=== PATIENT | male | born 1965 | race American Indian/Alaskan Native ===

== ENCOUNTER 2016-07-20 12:39 | Inpatient (IN) | payer OTHER ==
[2016-07-20 13:24] LABS: Hematocrit 45.4 % (35.5-45.6); Hemoglobin 15.3 gm/dl (11.8-15.2); Mean Corpuscular HGB Conc 34 % (32-34); Mean Corpuscular Hemoglobin 32 pg (28-32); Mean Corpuscular Volume 95 fl (84-94); Platelet Count 317 K/mm3 (140-440); Red Blood Count 4.76 M/mm3 (3.65-5.03); Red Cell Distribution Width 13.7 % (13.2-15.2); White Blood Count 8.1 K/mm3 (4.5-11.0)
[2016-07-20 13:26] LABS: INR 1.01 (0.87-1.13)
[2016-07-20 13:27] LABS: Partial Thromboplastin Time 30.8 Sec. (24.2-36.6)
--- NOTE | 2016-07-20 13:27 | Cat Scan Report ---
CT scan of head without contrast: History: Neuro deficit. Findings: Ventricles are normal in size and the patient 1 cm focal area of low attenuation in the left temporal lobe. No evidence of hemorrhage. No extra-axial fluid collection. Normal brainstem and cerebellum. Normal sinuses and mastoids are Impression: Focal area of low attenuation left temporal lobe probably chronic ischemia. No evidence of hemorrhage. Dr. Lorenzo was informed of the findings at 1:18 PM on 07/20/16. [id number]
[2016-07-20 13:31] LABS: Anion Gap 14 mmol/L; Blood Urea Nitrogen 16 mg/dL (9-20); Calcium 8.8 mg/dL (8.4-10.2); Carbon Dioxide 26 mmol/L (22-30); Chloride 100.2 mmol/L (98-107); Glucose 96 mg/dL (75-100); Potassium 3.6 mmol/L (3.6-5.0); Sodium 137 mmol/L (137-145)
--- NOTE | 2016-07-20 13:34 | Emergency Department Report ---
ED Neuro Deficit HPI - General Chief Complaint: Neuro Symptoms/Deficit Stated Complaint: HIGH BP Time Seen by Provider: 07/20/16 13:10 Source: patient, EMS Mode of arrival: Stretcher Limitations: No Limitations - History of Present Illness Initial Comments: The patient states that he woke up with a headache principally on the left side of his head frontally. He states it was moderate in intensity. He is perhaps slightly dysarthric but does not identify this as a new problem. He denies any facial numbness or drooping. He denies any difficulty in walking, vertigo or dizziness. He denies any change in his vision or any focal weakness or any sensory change whatsoever. The patient denies a history of prior stroke. Initially he denied medical problems of any nature. However on further questioning he did admit to being noncompliant with previous prescriptions for hypertension. He has not seen a doctor in some time. -: During the night (awoke with a headache) Presenting Symptoms: Absent: Weak/Paralyzed One Side, Sudden, Severe Headache, Blurred/Loss of Vision, Facial Droop/Numbness, Unable to Speak Clearly, Altered Mental Status History of same: No Place: home Severity: moderate Quality: other (denies any neurological change) Improves With: none Worsens With: none On Anticoagulants: No Associated Symptoms: denies other symptoms - Related Data Allergies/Adverse Reactions: Allergies Allergy/AdvReac Type Severity Reaction Status Date / Time No Known Allergies Allergy Unverified 07/20/16 13:14 ED Review of Systems ROS: Stated complaint: HIGH BP Other details as noted in HPI Constitutional: denies: chills, fever Eyes: denies: eye pain, eye discharge, vision change ENT: denies: ear pain, throat pain Respiratory: denies: cough, shortness of breath, wheezing Cardiovascular: denies: chest pain, palpitations Endocrine: no symptoms reported Gastrointestinal: denies: abdominal pain, nausea, diarrhea Genitourinary: denies: urgency, dysuria Musculoskeletal: denies: back pain, joint swelling, arthralgia Skin: denies: rash, lesions Neurological: headache. denies: weakness, numbness, paresthesias, confusion, abnormal gait, vertigo Psychiatric: denies: anxiety, depression Hematological/Lymphatic: denies: easy bleeding, easy bruising ED Past Medical Hx - Past Medical History Previous Medical History?: Yes Hx Hypertension: Yes - Surgical History Past Surgical History?: No - Social History Smoking Status: Never Smoker Substance Use Type: None ED Neuro Physical Exam - General Limitations: No Limitations General appearance: alert, in no apparent distress Suspected Stroke: No (acute stroke is unlikely) - Head Head exam: Present: atraumatic, normocephalic. Absent: normal inspection - Eye Eye exam: Present: normal appearance, PERRL, EOMI. Absent: scleral icterus - ENT ENT exam: Present: normal exam, mucous membranes moist - Neck Neck exam: Present: normal inspection. Absent: tenderness, meningismus - Respiratory Respiratory exam: Present: normal lung sounds bilaterally. Absent: respiratory distress - Cardiovascular Cardiovascular Exam: Present: regular rate, normal rhythm. Absent: systolic murmur, diastolic murmur, rubs, gallop - GI/Abdominal GI/Abdominal exam: Present: soft, normal bowel sounds. Absent: distended, tenderness, guarding, rebound, rigid - Rectal Rectal exam: Present: deferred - Extremities Exam Extremities exam: Present: normal inspection - Back Exam Back exam: Present: normal inspection - Neurological Exam Neurological exam: Present: alert, oriented X3, CN II-XII intact (patient seemed to have some facial asymmetry but no paresis), other (perhaps slightly dysarthric). Absent: motor sensory deficit (no drift) - NIHSS Assessment Interval: Baseline 1a. Level of Consciousness: alert 1b. LOC Questions: answers correctly 1c. LOC Commands: performs tasks correctly 2. Best Gaze: normal 3. Visual: no visual loss 4. Facial Palsy: normal symmetrical movement 5b. Motor Arm Right: no drift 5a. Motor Arm Left: no drift 6a. Motor Leg Left: no drift 6b. Motor Leg Right: no drift 7. Limb Ataxia: absent 8. Sensory: normal 9. Best Language: no aphasia 10. Dysarthria: mild/moderate dysarthria 11. Extinction/Inattention: no abnormality (I believe the dysarthria is the patient's baseline) Total Score: 1 Stroke Severity: Minor Stroke - Psychiatric Psychiatric exam: Present: normal affect, normal mood - Skin Skin exam: Present: warm, dry, intact, normal color. Absent: rash ED Course Vital Signs 07/20/16 07/20/16 07/20/16 13:05 13:19 14:00 Temperature 98.6 F Pulse Rate 83 65 63 Respiratory 16 13 18 Rate Blood Pressure 174/120 162/112 O2 Sat by Pulse 99 99 99 Oximetry 07/20/16 07/20/16 15:00 15:10 Temperature Pulse Rate 61 Respiratory 17 16 Rate Blood Pressure 166/118 O2 Sat by Pulse 100 97 Oximetry - Reevaluation(s) Reevaluation #1: The patient's CT shows an area of low attenuation in the left temporal area. This is obviously non-acute. There is no indication for TPA. Patient would be outside the window of opportunity for treatment with TPA even had an acute stroke during the night. 07/20/16 13:34 Reevaluation #2: Discussed with Dr. Mcelroy. Admitted to the hospitalist service. 07/20/16 15:57 - Lab Data Result diagrams: 07/20/16 13:06 07/20/16 13:06 Lab Results 07/20/16 07/20/16 07/20/16 Range/Units 13:06 13:06 13:06 WBC 8.1 (4.5-11.0) K/mm3 RBC 4.76 (3.65-5.03) M/mm3 Hgb 15.3 H (11.8-15.2) gm/dl Hct 45.4 (35.5-45.6) % MCV 95 H (84-94) fl MCH 32 (28-32) pg MCHC 34 (32-34) % RDW 13.7 (13.2-15.2) % Plt Count 317 (140-440) K/mm3 Eos % (Auto) Plastic Surgery Nurse Add Manual Diff Complete Total Counted 100 Seg Neuts % (Manual) 51.0 (40.0-70.0) % Band Neutrophils % 0 % Lymphocytes % (Manual) 21.0 (13.4-35.0) % Reactive Lymphs % (Man) 0 % Monocytes % (Manual) 9.0 H (0.0-7.3) % Eosinophils % (Manual) 18.0 H (0.0-4.3) % Basophils % (Manual) 1.0 (0.0-1.8) % Metamyelocytes % 0 % Myelocytes % 0 % Promyelocytes % 0 % Blast Cells % 0 % Nucleated RBC % Not Reportable Seg Neutrophils # Man 4.1 (1.8-7.7) K/mm3 Band Neutrophils # 0.0 K/mm3 Lymphocytes # (Manual) 1.7 (1.2-5.4) K/mm3 Abs React Lymphs (Man) 0.0 K/mm3 Monocytes # (Manual) 0.7 (0.0-0.8) K/mm3 Eosinophils # (Manual) 1.5 H (0.0-0.4) K/mm3 Basophils # (Manual) 0.1 (0.0-0.1) K/mm3 Metamyelocytes # 0.0 K/mm3 Myelocytes # 0.0 K/mm3 Promyelocytes # 0.0 K/mm3 Blast Cells # 0.0 K/mm3 WBC Morphology Not Reportable Hypersegmented Neuts Not Reportable Hyposegmented Neuts Not Reportable Hypogranular Neuts Not Reportable Smudge Cells Not Reportable Toxic Granulation Not Reportable Toxic Vacuolation Not Reportable Dohle Bodies Not Reportable Pelger-Huet Anomaly Not Reportable Nohemy Rods Not Reportable Platelet Estimate Consistent w auto Clumped Platelets Not Reportable Plt Clumps, EDTA Not Reportable Large Platelets Not Reportable Giant Platelets Not Reportable Platelet Satelliting Not Reportable Plt Morphology Comment Not Reportable RBC Morphology Not Reportable Dimorphic RBCs Not Reportable Polychromasia Not Reportable Hypochromasia Not Reportable Poikilocytosis Not Reportable Anisocytosis 1+ Microcytosis Not Reportable Macrocytosis Few Spherocytes Not Reportable Pappenheimer Bodies Not Reportable Sickle Cells Not Reportable Target Cells Not Reportable Tear Drop Cells Not Reportable Ovalocytes Not Reportable Helmet Cells Not Reportable Sheldon-Clarissa Bodies Not Reportable Vista Rings Not Reportable Sussex Cells Not Reportable Bite Cells Not Reportable Crenated Cell Not Reportable Elliptocytes Not Reportable Acanthocytes (Spur) Not Reportable Rouleaux Not Reportable Hemoglobin C Crystals Not Reportable Schistocytes Not Reportable Malaria parasites Not Reportable Ghassan Bodies Not Reportable Hem Pathologist Commnt No PT 13.2 (12.2-14.9) Sec. INR 1.01 (0.87-1.13) APTT 30.8 (24.2-36.6) Sec. Thrombin Time (15.1-19.6) Sec. Sodium 137 (137-145) mmol/L Potassium 3.6 (3.6-5.0) mmol/L Chloride 100.2 (98-107) mmol/L Carbon Dioxide 26 (22-30) mmol/L Anion Gap 14 mmol/L BUN 16 (9-20) mg/dL Creatinine 1.0 (0.8-1.5) mg/dL Estimated GFR > 60 ml/min BUN/Creatinine Ratio 16.00 % Glucose 96 (75-100) mg/dL Calcium 8.8 (8.4-10.2) mg/dL Troponin T < 0.010 (0.00-0.029) ng/mL 07/20/16 Range/Units 13:06 WBC (4.5-11.0) K/mm3 RBC (3.65-5.03) M/mm3 Hgb (11.8-15.2) gm/dl Hct (35.5-45.6) % MCV (84-94) fl MCH (28-32) pg MCHC (32-34) % RDW (13.2-15.2) % Plt Count (140-440) K/mm3 Eos % (Auto) Add Manual Diff Total Counted Seg Neuts % (Manual) (40.0-70.0) % Band Neutrophils % % Lymphocytes % (Manual) (13.4-35.0) % Reactive Lymphs % (Man) % Monocytes % (Manual) (0.0-7.3) % Eosinophils % (Manual) (0.0-4.3) % Basophils % (Manual) (0.0-1.8) % Metamyelocytes % % Myelocytes % % Promyelocytes % % Blast Cells % % Nucleated RBC % Seg Neutrophils # Man (1.8-7.7) K/mm3 Band Neutrophils # K/mm3 Lymphocytes # (Manual) (1.2-5.4) K/mm3 Abs React Lymphs (Man) K/mm3 Monocytes # (Manual) (0.0-0.8) K/mm3 Eosinophils # (Manual) (0.0-0.4) K/mm3 Basophils # (Manual) (0.0-0.1) K/mm3 Metamyelocytes # K/mm3 Myelocytes # K/mm3 Promyelocytes # K/mm3 Blast Cells # K/mm3 WBC Morphology Hypersegmented Neuts Hyposegmented Neuts Hypogranular Neuts Smudge Cells Toxic Granulation Toxic Vacuolation Dohle Bodies Pelger-Huet Anomaly Nohemy Rods Platelet Estimate Clumped Platelets Plt Clumps, EDTA Large Platelets Giant Platelets Platelet Satelliting Plt Morphology Comment RBC Morphology Dimorphic RBCs Polychromasia Hypochromasia Poikilocytosis Anisocytosis Microcytosis Macrocytosis Spherocytes Pappenheimer Bodies Sickle Cells Target Cells Tear Drop Cells Ovalocytes Helmet Cells Sheldon-Clarissa Bodies Vista Rings Sussex Cells Bite Cells Crenated Cell Elliptocytes Acanthocytes (Spur) Rouleaux Hemoglobin C Crystals Schistocytes Malaria parasites Ghassan Bodies Hem Pathologist Commnt PT (12.2-14.9) Sec. INR (0.87-1.13) APTT (24.2-36.6) Sec. Thrombin Time 17.3 (15.1-19.6) Sec. Sodium (137-145) mmol/L Potassium (3.6-5.0) mmol/L Chloride (98-107) mmol/L Carbon Dioxide (22-30) mmol/L Anion Gap mmol/L BUN (9-20) mg/dL Creatinine (0.8-1.5) mg/dL Estimated GFR ml/min BUN/Creatinine Ratio % Glucose (75-100) mg/dL Calcium (8.4-10.2) mg/dL Troponin T (0.00-0.029) ng/mL - EKG Data -: EKG Interpreted by Me EKG shows normal: sinus rhythm, axis, intervals, QRS complexes, ST-T waves Rate: normal Interpretation: no acute changes - Radiology Data interpreted by me: Discussed with Dr. Martin of the radiologist old hypolucency left temporal area. - Thrombolytic Inclusion/Exclusion Thrombolytic Exclusion Criteria: Symptom Onset > 3 Hours Critical care attestation.: If time is entered above; I have spent that time in minutes in the direct care of this critically ill patient, excluding procedure time. ED Disposition Clinical Impression: Uncontrolled hypertension Cephalalgia Qualifiers: Headache type: unspecified Headache chronicity pattern: acute headache Intractability: not intractable Qualified Code(s): R51 - Headache CVA (cerebral vascular accident) Qualifiers: CVA mechanism: unspecified Qualified Code(s): I63.9 - Cerebral infarction, unspecified Disposition: OP ADMITTED IP TO THIS HOSP Is pt being admited?: Yes Does the pt Need Aspirin: Yes Condition: Stable Instructions: Hypertension (ED) Time of Disposition: 13:38
[2016-07-20] MEDS ORDERED: BABY ASPIRIN PO ONE (13:42)
[2016-07-20] MEDS ORDERED: NORCO 5/325 PO ONE (13:43)
[2016-07-20 14:46] LABS: Anisocytosis 1+; Blastocytes % (Manual) 0 %; Diff Status Complete; Macrocytosis Few; Platelet Estimate Consistent w Auto
[2016-07-20] MEDS ORDERED: NORMODYNE IV ONE (15:28)
[2016-07-20] MEDS ORDERED: BABY ASPIRIN ONE (15:45)
[2016-07-20] MEDS ORDERED: APRESOLINE ONE (15:49)
[2016-07-20] MEDS ORDERED: APRESOLINE IV ONE (15:50)
--- NOTE | 2016-07-20 18:38 | Event Note ---
Date: 07/20/16 See H/p in reports HTN emergency
[2016-07-20] MEDS ORDERED: MILK OF MAGNESIA PO PRN (20:15)
[2016-07-20] MEDS ORDERED: ZOFRAN IV PRN (20:15)
[2016-07-20] MEDS ORDERED: DULCOLAX PR PRN (20:15)
[2016-07-20] MEDS ORDERED: TYLENOL PO PRN (20:15)
[2016-07-20] MEDS ORDERED: LOVENOX SUB-Q SCH (21:00)
[2016-07-20] MEDS: PERCOCET 5/325 PO PRN (21:39)
[2016-07-20] MEDS: LOVENOX SUB-Q SCH (21:39)
[2016-07-20] MEDS: AMBIEN PO PRN (21:39)
[2016-07-20] MEDS ORDERED: PNEUMOVAX 23 IM ONE (21:58)
[2016-07-20] MEDS ORDERED: FLUARIX QUAD 2016-2017(36 MOS+) IM ONE (21:58)
[2016-07-20] MEDS: COREG PO SCH (22:00)
[2016-07-20] MEDS: COZAAR PO SCH (22:00)
--- NOTE | 2016-07-20 22:02 | Admit Criteria Form ---
Admission Criteria Documentation: STROKE: ISCHEMIC Clinical Indications for Admission to Inpatient Care (Place 'X' for any and all applicable criteria): Admission is indicated for ANY ONE of the following(1)(2)(3)(4): [X ]I. Acute stroke Extended stay beyond goal length of stay may be needed for(1)(2) [ ]a) Major deficit or clinical deterioration [ ]b) Hospital-acquired infection (eg, urinary tract infection, pneumonia) [ ]c) Embolic cause of stroke [ ]d) Venous thromboembolism(9) [ ]e) Seizures [ ]f) Bleeding (eg, cerebral) [ ]g) Increased intracranial pressure [ ]h) Comorbidities [ ]i) Surgical intervention The original [facility] content created by [employer] has been revised. The portions of the content which have been revised are identified through the use of italic text or in bold, and [facility] [employer] has neither reviewed nor approved the modified material. All other unmodified content is copyright [facility]. Please see references footnoted in the original [facility] edition 2016 Admission Criteria Met: Yes
[2016-07-21 05:48] LABS: Hematocrit 45.3 % (35.5-45.6); Hemoglobin 14.9 gm/dl (11.8-15.2); Mean Corpuscular HGB Conc 33 % (32-34); Mean Corpuscular Hemoglobin 32 pg (28-32); Mean Corpuscular Volume 96 fl (84-94); Platelet Count 291 K/mm3 (140-440); Red Blood Count 4.72 M/mm3 (3.65-5.03); Red Cell Distribution Width 13.8 % (13.2-15.2); White Blood Count 6.3 K/mm3 (4.5-11.0)
[2016-07-21 06:11] LABS: Alanine Aminotransferase 8 units/L (7-56); Albumin 3.7 g/dL (3.9-5); Albumin/Globulin Ratio 1.2 %; Alkaline Phosphatase 68 units/L (35-129); Anion Gap 17 mmol/L; Bilirubin,Total 0.3 mg/dL (0.1-1.2); Blood Urea Nitrogen 18 mg/dL (9-20); Calcium 8.5 mg/dL (8.4-10.2); Carbon Dioxide 24 mmol/L (22-30); Chloride 103.7 mmol/L (98-107); Glucose 94 mg/dL (75-100); Potassium 3.5 mmol/L (3.6-5.0); Sodium 141 mmol/L (137-145); Total Protein 6.7 g/dL (6.3-8.2)
[2016-07-21 06:47] LABS: Blastocytes % (Manual) 0 %
[2016-07-21 06:48] LABS: Anisocytosis 1+; Diff Status Complete; Macrocytosis Rare; Platelet Estimate Consistent w Auto
[2016-07-21] MEDS: PERCOCET 5/325 PO PRN ×2 (08:00→20:45)
--- NOTE | 2016-07-21 08:19 | History and Physical Report ---
CHIEF COMPLAINT: Severe headache on the left for 1 day. HISTORY OF PRESENT ILLNESS: A 50-year-old -[place] male, who presents with severe headache localized to the left temporal area. It has been going on for 1 day. Also dysarthric at the time of presentation to the ER. Denies any difficulty walking or any weakness. No history of stroke. He has a history of hypertension, but not taking any medications. No nasal regurgitation of fluids. No ataxia. CURRENT MEDICATIONS: None. PAST MEDICAL HISTORY: Hypertension, noncompliant with medications. PAST SURGICAL HISTORY: None. SOCIAL HISTORY: Does not smoke. No alcohol, no recreational drugs. FAMILY HISTORY: Significant for hypertension. REVIEW OF SYSTEMS: CONSTITUTIONAL: No fever, no chills. No weight loss. No weight gain. HEENT: No sore throat. No postnasal drip. No facial droop. NECK: No neck stiffness. CARDIOVASCULAR AND RESPIRATORY SYSTEM: No chest pain, no palpitations, no cough, no wheezing. GASTROINTESTINAL SYSTEM: No nausea, no vomiting, no diarrhea. GENITOURINARY SYSTEM: No dysuria, no flank pain. MUSCULOSKELETAL SYSTEM: No joint pains. CENTRAL NERVOUS SYSTEM: CVA with left-sided headache, along with dysarthria but no focal weakness. PSYCHIATRIC: No depression. No homicidal or suicidal tendencies. SKIN: No rashes. A 14-point review of systems was done. PHYSICAL EXAMINATION: GENERAL: On examination, middle-aged male, cooperative during examination. VITAL SIGNS: Temperature 98.6, pulse is 83, respirations 16, and blood pressure 174/120, repeat was 162/112. HEENT: Unremarkable. Pupils are equal and reactive. NECK: Supple, no lymphadenopathy, no thyromegaly. LUNGS: Clear to auscultation and percussion. Good air entry. CARDIOVASCULAR: S1, S2 heard. No gallop, no murmur, no rub. Apical impulse in left fifth intercostal space and midclavicular line. ABDOMEN: Soft and benign. No hepatosplenomegaly. No guarding, no rigidity. Hernial orifices are normal. EXTREMITIES: Good pedal pulses. No pedal edema. CENTRAL NERVOUS SYSTEM: No focal deficits. Power is 5/5 in all 4 extremities. No sensory loss. All the cranial nerves are normal. SKIN: Normal. LABORATORY DATA: Reviewed. Hemoglobin is 15.3, otherwise labs are normal. Electrolytes are normal. EKG shows normal sinus rhythm, LVH by voltage criteria, QRS with normal QRS complexes, nonspecific ST-T wave changes. EMERGENCY DEPARTMENT COURSE: The patient was not given TPA because there were no clear signs of cerebrovascular accident. The patient has some dysarthria and headache. ASSESSMENT AND PLAN: 1. Hypertensive emergency. The patient was to be given IV labetalol and hydralazine. In the meantime, the patient is started on losartan 100 mg daily and Coreg 12.5 q. 12 hours. 2. Transient ischemic attack. The patient had dysarthria, which has resolved. We will get an MRI and echocardiogram. 3. Headache, resolved, Fioricet if necessary. 4. Deep venous thrombosis prophylaxis, Lovenox 40 mg subcutaneous daily. 5. Neurology consult also requested. JOB# [id number] MARIAN/CARLOS SUN
--- NOTE | 2016-07-21 08:22 | XRay Report ---
AP CHEST: HISTORY: Hypertension AP view of the chest demonstrates a normal mediastinal and cardiac contour with clear lungs and normal bony and soft tissue structures. IMPRESSION: Unremarkable AP chest.
[2016-07-21] MEDS ORDERED: COREG ONE (10:42)
[2016-07-21] MEDS: COREG PO SCH ×2 (11:45→22:14)
[2016-07-21] MEDS: COZAAR PO SCH (11:45)
[2016-07-21] MEDS ORDERED: FLUARIX QUAD 2016-2017(36 MOS+) IM ONE (12:00)
[2016-07-21] MEDS ORDERED: PNEUMOVAX 23 IM ONE (12:00)
--- NOTE | 2016-07-21 14:14 | Consultation ---
History of Present Illness Chief complaint: weakness History of present illness: This is a 50 YO M who presented with a hypertensive emergency headache a nd weakness. Pt says he is better now that his BP is better. Admits he stopped his BP meds when he loss weight. Past History Past Medical History: hypertension Past Surgical History: No surgical history Social history: lives with family Family history: hypertension Medications and Allergies Allergies Allergy/AdvReac Type Severity Reaction Status Date / Time No Known Allergies Allergy Unverified 07/20/16 13:14 Home Medications Medication Instructions Recorded Confirmed Last Taken Type No Known Home Medications [No 07/20/16 07/20/16 Unknown History Reported Home Medications] Active Meds: Active Medications Acetaminophen (Tylenol) 650 mg PO Q4H PRN PRN Reason: Pain MILD(1-3)/Fever >100.5/SESAY Bisacodyl (Dulcolax) 10 mg NC QDAY PRN PRN Reason: Constipation unrelieved by MOM Carvedilol (Coreg) 12.5 mg PO BID [facility] Last Admin: 07/21/16 11:45 Dose: 12.5 mg Enoxaparin Sodium (Lovenox) 40 mg SUB-Q QDAY@2200 [facility] Last Admin: 07/20/16 21:39 Dose: 40 mg Losartan Potassium (Cozaar) 100 mg PO QDAY [facility] Last Admin: 07/21/16 11:45 Dose: 100 mg Magnesium Hydroxide (Milk Of Magnesia) 30 ml PO Q4H PRN PRN Reason: Constipation Ondansetron HCl (Zofran) 4 mg IV Q8H PRN PRN Reason: N/V unrelieved by Reglan Oxycodone/Acetaminophen (Percocet 5/325) 1 tab PO Q6H PRN PRN Reason: Pain, Moderate (4-6) Last Admin: 07/21/16 08:00 Dose: 1 tab Zolpidem Tartrate (Ambien) 5 mg PO QHS PRN PRN Reason: Insomnia Last Admin: 07/20/16 21:39 Dose: 5 mg Review of Systems All systems: negative Neurological: weakness, headaches Physical Examination - Vital Signs Vital Signs: Vital Signs Temp Pulse Resp BP Pulse Ox 98.6 F 83 16 174/120 99 07/20/16 13:05 07/20/16 13:05 07/20/16 13:05 07/20/16 13:05 07/20/16 13:05 - Constitutional General appearance: comfortable - EENT EENT: Present: PERRL - Respiratory Respiratory: Present: lungs clear - Cardiovascular Cardiovascular: Present: normal S1, normal S2 - Gastrointestinal Gastrointestinal: Present: normoactive bowel sounds - Neurologic Cranial nerve examination: PERRL, EOMI, V1/V2/V3 grossly intact, face symmetric , tongue midline Speech examination: intact Sensorimotor examination: intact Motor examination - right side: 5/5: biceps, triceps, wrist flexion, wrist extension, boat washer, hip flexors, knee extensors, dorsiflexion, toe extension (EHL) , plantarflexion Motor examination - left side: 5/5: biceps, triceps, wrist flexion, wrist extension, boat washer, hip flexors, knee extensors, dorsiflexion, toe extension (EHL) , plantarflexion Reflexes: 0: ankle, bicep, knee, tricep Results - Laboratory Findings CBC and BMP: 07/21/16 05:32 07/21/16 05:32 Abnormal Lab Findings: Abnormal Labs 07/21/16 07/21/16 05:32 05:32 MCV 96 H Seg Neuts % (Manual) 36.0 L Monocytes % (Manual) 10.0 H Eosinophils % (Manual) 25.0 H Eosinophils # (Manual) 1.6 H Potassium 3.5 L Albumin 3.7 L - Diagnostic Findings Additional findings: Nothing acute Assessment and Plan TIA in the setting of hypertensive emergency: Recommend: aspirin and statin control BP as you are doing PT/OT/ST echo and carotids Continue care for his medical issues as you are doing Thank you for the consult. Call with questions.
--- NOTE | 2016-07-21 15:37 | Progress Note ---
Assessment and Plan Assessment and plan: 1. Hypertensive urgency - due to noncompliance (lost weight and stopped taking his antihypertensives); received hydralazine and labetalol IV initially, now on by mouth Coreg and losartan; SBP in 140s; continue to monitor and adjust regimen as needed 2. TIA - likely secondary to hypertensive urgency, but CT head revealed a possible old stroke; evaluated by neurologist and additional workup in progress (brain MRI, echocardiogram, carotid Doppler); start antiplatelet and statin therapy today; check lipid profile and if necessary adjust statin dose 3. Headache - likely secondary to hypertensive urgency; resolved 4. Umbilical hernia - was to follow-up in outpatient with his surgeon 5. DVT prophylaxis - Lovenox History Interval history: feeling much better today, headache resolved c/o abd discomfort due to his hernia Hospitalist Physical - Constitutional Vitals: Temp Pulse Resp BP Pulse Ox 98.6 F 89 17 126/81 99 07/20/16 13:05 07/21/16 11:45 07/21/16 11:42 07/21/16 14:00 07/21/16 14:00 General appearance: Present: no acute distress, well-nourished - Neck Neck: Present: supple, normal ROM. Absent: masses or JVD - Respiratory Respiratory effort: normal Respiratory: bilateral: CTA, negative: rales, rhonchi, wheezing - Cardiovascular Rhythm: regular Heart Sounds: Present: S1 & S2. Absent: systolic murmur - Extremities Extremities: no ischemia - Abdominal General gastrointestinal: soft, non-tender, non-distended, normal bowel sounds - Psychiatric Psychiatric: cooperative - Neurologic Neurologic: CNII-XII intact, no focal deficits Results - Labs CBC & Chem 7: 07/21/16 05:32 07/21/16 05:32 Labs: Laboratory Last Values WBC 6.3 K/mm3 (4.5-11.0) 07/21/16 05:32 RBC 4.72 M/mm3 (3.65-5.03) 07/21/16 05:32 Hgb 14.9 gm/dl (11.8-15.2) 07/21/16 05:32 Hct 45.3 % (35.5-45.6) 07/21/16 05:32 MCV 96 fl (84-94) H 07/21/16 05:32 MCH 32 pg (28-32) 07/21/16 05:32 MCHC 33 % (32-34) 07/21/16 05:32 RDW 13.8 % (13.2-15.2) 07/21/16 05:32 Plt Count 291 K/mm3 (140-440) 07/21/16 05:32 Eos % (Auto) 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 07/21/16 05:32 Add Manual Diff Complete 07/21/16 05:32 Total Counted 100 07/21/16 05:32 Seg Neuts % (Manual) 36.0 % (40.0-70.0) L 07/21/16 05:32 Band Neutrophils % 0 % 07/21/16 05:32 Lymphocytes % (Manual) 28.0 % (13.4-35.0) 07/21/16 05:32 Reactive Lymphs % (Man) 0 % 07/21/16 05:32 Monocytes % (Manual) 10.0 % (0.0-7.3) H 07/21/16 05:32 Eosinophils % (Manual) 25.0 % (0.0-4.3) H 07/21/16 05:32 Basophils % (Manual) 1.0 % (0.0-1.8) 07/21/16 05:32 Metamyelocytes % 0 % 07/21/16 05:32 Myelocytes % 0 % 07/21/16 05:32 Promyelocytes % 0 % 07/21/16 05:32 Blast Cells % 0 % 07/21/16 05:32 Nucleated RBC % Not Reportable 07/21/16 05:32 Seg Neutrophils # Man 2.3 K/mm3 (1.8-7.7) 07/21/16 05:32 Band Neutrophils # 0.0 K/mm3 07/21/16 05:32 Lymphocytes # (Manual) 1.8 K/mm3 (1.2-5.4) 07/21/16 05:32 Abs React Lymphs (Man) 0.0 K/mm3 07/21/16 05:32 Monocytes # (Manual) 0.6 K/mm3 (0.0-0.8) 07/21/16 05:32 Eosinophils # (Manual) 1.6 K/mm3 (0.0-0.4) H 07/21/16 05:32 Basophils # (Manual) 0.1 K/mm3 (0.0-0.1) 07/21/16 05:32 Metamyelocytes # 0.0 K/mm3 07/21/16 05:32 Myelocytes # 0.0 K/mm3 07/21/16 05:32 Promyelocytes # 0.0 K/mm3 07/21/16 05:32 Blast Cells # 0.0 K/mm3 07/21/16 05:32 WBC Morphology Not Reportable 07/21/16 05:32 Hypersegmented Neuts Not Reportable 07/21/16 05:32 Hyposegmented Neuts Not Reportable 07/21/16 05:32 Hypogranular Neuts Not Reportable 07/21/16 05:32 Smudge Cells Not Reportable 07/21/16 05:32 Toxic Granulation Not Reportable 07/21/16 05:32 Toxic Vacuolation Not Reportable 07/21/16 05:32 Dohle Bodies Not Reportable 07/21/16 05:32 Pelger-Huet Anomaly Not Reportable 07/21/16 05:32 Nohemy Rods Not Reportable 07/21/16 05:32 Platelet Estimate Consistent w auto 07/21/16 05:32 Clumped Platelets Not Reportable 07/21/16 05:32 Plt Clumps, EDTA Not Reportable 07/21/16 05:32 Large Platelets Not Reportable 07/21/16 05:32 Giant Platelets Not Reportable 07/21/16 05:32 Platelet Satelliting Not Reportable 07/21/16 05:32 Plt Morphology Comment Not Reportable 07/21/16 05:32 RBC Morphology Not Reportable 07/21/16 05:32 Dimorphic RBCs Not Reportable 07/21/16 05:32 Polychromasia Not Reportable 07/21/16 05:32 Hypochromasia Not Reportable 07/21/16 05:32 Poikilocytosis Not Reportable 07/21/16 05:32 Anisocytosis 1+ 07/21/16 05:32 Microcytosis Not Reportable 07/21/16 05:32 Macrocytosis Rare 07/21/16 05:32 Spherocytes Not Reportable 07/21/16 05:32 Pappenheimer Bodies Not Reportable 07/21/16 05:32 Sickle Cells Not Reportable 07/21/16 05:32 Target Cells Not Reportable 07/21/16 05:32 Tear Drop Cells Not Reportable 07/21/16 05:32 Ovalocytes Not Reportable 07/21/16 05:32 Helmet Cells Not Reportable 07/21/16 05:32 [place] Bodies Not Reportable 07/21/16 05:32 [place] Rings Not Reportable 07/21/16 05:32 [place] Cells Not Reportable 07/21/16 05:32 Bite Cells Not Reportable 07/21/16 05:32 Crenated Cell Not Reportable 07/21/16 05:32 Elliptocytes Not Reportable 07/21/16 05:32 Acanthocytes (Spur) Not Reportable 07/21/16 05:32 Rouleaux Not Reportable 07/21/16 05:32 Hemoglobin C Crystals Not Reportable 07/21/16 05:32 Schistocytes Not Reportable 07/21/16 05:32 Malaria parasites Not Reportable 07/21/16 05:32 Ghassan Bodies Not Reportable 07/21/16 05:32 Hem Pathologist Commnt No 07/21/16 05:32 PT 13.2 Sec. (12.2-14.9) 07/20/16 13:06 INR 1.01 (0.87-1.13) 07/20/16 13:06 APTT 30.8 Sec. (24.2-36.6) 07/20/16 13:06 Thrombin Time 17.3 Sec. (15.1-19.6) 07/20/16 13:06 Sodium 141 mmol/L (137-145) 07/21/16 05:32 Potassium 3.5 mmol/L (3.6-5.0) L 07/21/16 05:32 Chloride 103.7 mmol/L (98-107) 07/21/16 05:32 Carbon Dioxide 24 mmol/L (22-30) 07/21/16 05:32 Anion Gap 17 mmol/L 07/21/16 05:32 BUN 18 mg/dL (9-20) 07/21/16 05:32 Creatinine 1.2 mg/dL (0.8-1.5) 07/21/16 05:32 Estimated GFR > 60 ml/min 07/21/16 05:32 BUN/Creatinine Ratio 15.00 % 07/21/16 05:32 Glucose 94 mg/dL (75-100) 07/21/16 05:32 POC Glucose 83 (70-105) 07/20/16 13:03 Calcium 8.5 mg/dL (8.4-10.2) 07/21/16 05:32 Total Bilirubin 0.3 mg/dL (0.1-1.2) 07/21/16 05:32 AST 11 units/L (5-40) 07/21/16 05:32 ALT 8 units/L (7-56) 07/21/16 05:32 Alkaline Phosphatase 68 units/L (35-129) 07/21/16 05:32 Troponin T < 0.010 ng/mL (0.00-0.029) 07/20/16 13:06 Total Protein 6.7 g/dL (6.3-8.2) 07/21/16 05:32 Albumin 3.7 g/dL (3.9-5) L 07/21/16 05:32 Albumin/Globulin Ratio 1.2 % 07/21/16 05:32 - Imaging and Cardiology Chest x-ray: image reviewed (no acute process) CT Scan - head: report reviewed (focal area of low attenuation left temporal lobe prabably chronic ischemia) Imaging and Cardiology: ECHO pending
--- NOTE | 2016-07-21 17:31 | Echocardiography Report ---
Transthoracic Echocardiogram Indication: CHF BP: 124/81 HR: 59 Conclusions *Mild concentric left ventricular hypertrophy is observed. *Global left ventricular systolic function is at the lower limits of normal. *The estimated ejection fraction is 50-55%. *The aortic valve is trileaflet. *There is trace of mitral regurgitation. *There is no pericardial effusion. Findings Procedure Info: The study quality is good. Left Ventricle: The left ventricular chamber size is normal. Mild concentric left ventricular hypertrophy is observed. Global left ventricular systolic function is at the lower limits of normal. The estimated ejection fraction is 50-55%. Left Atrium: The left atrium is normal in size with no visual thrombus identified. The left atrial chamber size is normal. Right Ventricle: The right ventricle wall thickness is mildly increased. The right ventricular cavity size is normal. The right ventricular global systolic function is normal. Right Atrium: The right atrium is mildly dilated. Aortic Valve: The aortic valve is trileaflet. The aortic valve leaflets are mildly thickened. Systolic excursion of the aortic valve is normal. There is no evidence of aortic regurgitation. There is no evidence of aortic stenosis. Mitral Valve: The mitral valve leaflets appear normal. There is trace of mitral regurgitation. There is no evidence of mitral stenosis. Tricuspid Valve: There is trace tricuspid regurgitation. The right ventricular systolic pressure is calculated at ( ) mmHg. No pulmonary hypertension is noted. There is no tricuspid stenosis. Pulmonic Valve: The pulmonic valve is not well visualized. There is no evidence of pulmonic regurgitation. There is no pulmonic stenosis. Pericardium: There is no pericardial effusion. No pleural effusion is present. Measurements Chambers MM Name Value Normal Range IVSd (MM) 1.43 cm (0.6 - 1.1) LVPWd (MM) 1.43 cm (0.6 - 1.1) IVS:LVPW ratio 1 ratio - LVIDd (MM) 4.41 cm (3.7 - 5.6) LVIDs (MM) 3.19 cm (2 - 2.8) LV FS (Teichholz) (MM) 27.7 % - LV FS (cube) (MM) 27.7 % - EF Teichholz (MM) 54 % - Ao root diameter (MM) 2.6 cm (2 - 3.7) LA dimension (AP) MM 4.4 cm (1.9 - 4) LA:Ao ratio (MM) 1.69 ratio - AV cusp separation (MM) 2.2 cm (1.5 - 2.6) Chambers 2D Name Value Normal Range IVSd (2D) 1.29 cm (0.6 - 1.1) LVPWd 1.4 cm - LVPWd (2D) 1.35 cm (0.6 - 1.1) IVS:LVPW ratio (2D) 0.96 ratio - LVIDd 4.1 cm - LVIDs 2.94 cm - LVIDd (2D) 4.07 cm (3.7 - 5.6) LVIDs (2D) 2.94 cm (2 - 3.8) LV FS (Teichholz) (2D) 27.8 % - LV FS (cube) (2D) 27.8 % - LV EF (2D) 54 % - EF Teichholz (2D) 54.3 % - LA dimension 3.5 cm - Ao root diameter (2D) 2.8 cm (2 - 3.7) LA dimension (AP) 2D 3.5 cm (1.9 - 4) LA:Ao ratio (2D) 1.25 ratio - Volumes/Mass Name Value Normal Range LA ESV SP 4CH (MOD) 54 ml - LV EDV SP 4CH (MOD) 86 ml - LV ESV SP 4CH (MOD) 42 ml - EF SP 4CH (MOD) 51 % - Diastolic/Systolic Function Name Value Normal Range MV E-wave Vmax 0.73 m/sec - MV deceleration time 176 msec - MV A-wave Vmax 0.64 m/sec - MV E:A ratio 1.1 ratio - LV septal e' Vmax 0.07 m/sec - LV lateral e' Vmax 0.11 m/sec - LV E:e' septal ratio 10.5 ratio - LV E:e' lateral ratio 6.5 ratio - Aortic Valve Name Value Normal Range AV Vmax 1.47 m/sec - AV VTI 27.6 cm - AV peak gradient 9 mmHg - AV mean gradient 5 mmHg - LVOT diameter 2 cm - LVOT Vmax 1.02 m/sec - LVOT peak gradient 4 mmHg - MINDY (continuity Vmax) 2.18 cm2 - Pulmonic Valve/Qp:Qs Name Value Normal Range PV Vmax 0.83 m/sec - PV peak gradient 3 mmHg - PV acceleration time 144 msec -
[2016-07-21] MEDS: LOVENOX SUB-Q SCH (22:15)
[2016-07-22] MEDS: PERCOCET 5/325 PO PRN ×2 (08:12→14:09)
[2016-07-22] MEDS: COREG PO SCH ×2 (10:02→21:57)
[2016-07-22] MEDS: COZAAR PO SCH (10:02)
[2016-07-22] MEDS: BABY ASPIRIN PO SCH (10:02)
[2016-07-22] MEDS ORDERED: ATIVAN IV ONE (12:45)
--- NOTE | 2016-07-22 17:22 | Progress Note ---
Assessment and Plan Assessment and plan: Hypertensive urgency - due to noncompliance (lost weight and stopped taking his antihypertensives); - received hydralazine and labetalol IV initially, - now on by mouth Coreg and losartan; SBP in 140s; - continue to monitor and adjust regimen as needed TIA - likely secondary to hypertensive urgency, - but CT head revealed a possible old stroke; - evaluated by neurologist and additional workup in progress (brain MRI, carotid Doppler); - 2d echo showed normal EF - cont on antiplatelet and statin therapy Headache - likely secondary to hypertensive urgency; resolved Umbilical hernia - has to follow-up in outpatient with his surgeon DVT prophylaxis - Lovenox History Interval history: Patient seen and examined. Medical records and medication list reviewed. No acute event overnight noted by the RN. Patient denies any chest pain or difficulty breathing. Patient is tolerating diet. MRI pending, no new complaints Discussed plan of care at bedside with patient. Hospitalist Physical - Physical exam Narrative exam: GENERAL: well-developed and well-nourished AAM lying on bed appeared to be in no discomfort. HEENT: Normocephalic. Atraumatic. No conjunctival congestion or icterus. Patient has moist mucous membranes. NECK: Supple. Trachea midline. CHEST/LUNGS: Clear to auscultated bilaterally, breathing nonlabored. No wheezes crackles or rhonchi. HEART/CARDIOVASCULAR: Regular in rate and rhythm. S1 and S2 positive. ABDOMEN: Abdomen is soft, nontender. Patient has normal bowel sounds. has reducible umbilical hernia SKIN: There is no rash. Warm and dry. NEURO: No focal motor deficit. Follows command. MUSCULOSKELETAL: No joint effusion or tenderness. EXTRIMITY: No edema, no cyanosis or clubbing. PSYCH: Cooperative. - Constitutional Vitals: Temp Pulse Resp BP Pulse Ox 98.3 F 73 20 149/57 92 07/22/16 17:05 07/22/16 17:05 07/22/16 17:05 07/22/16 17:05 07/22/16 17:05 General appearance: Present: no acute distress, well-nourished Results - Labs CBC & Chem 7: 07/21/16 05:32 07/21/16 05:32 Labs: Laboratory Last Values WBC 6.3 K/mm3 (4.5-11.0) 07/21/16 05:32 RBC 4.72 M/mm3 (3.65-5.03) 07/21/16 05:32 Hgb 14.9 gm/dl (11.8-15.2) 07/21/16 05:32 Hct 45.3 % (35.5-45.6) 07/21/16 05:32 MCV 96 fl (84-94) H 07/21/16 05:32 MCH 32 pg (28-32) 07/21/16 05:32 MCHC 33 % (32-34) 07/21/16 05:32 RDW 13.8 % (13.2-15.2) 07/21/16 05:32 Plt Count 291 K/mm3 (140-440) 07/21/16 05:32 Eos % (Auto) Superintendent Plant 07/21/16 05:32 Add Manual Diff Complete 07/21/16 05:32 Total Counted 100 07/21/16 05:32 Seg Neuts % (Manual) 36.0 % (40.0-70.0) L 07/21/16 05:32 Band Neutrophils % 0 % 07/21/16 05:32 Lymphocytes % (Manual) 28.0 % (13.4-35.0) 07/21/16 05:32 Reactive Lymphs % (Man) 0 % 07/21/16 05:32 Monocytes % (Manual) 10.0 % (0.0-7.3) H 07/21/16 05:32 Eosinophils % (Manual) 25.0 % (0.0-4.3) H 07/21/16 05:32 Basophils % (Manual) 1.0 % (0.0-1.8) 07/21/16 05:32 Metamyelocytes % 0 % 07/21/16 05:32 Myelocytes % 0 % 07/21/16 05:32 Promyelocytes % 0 % 07/21/16 05:32 Blast Cells % 0 % 07/21/16 05:32 Nucleated RBC % Not Reportable 07/21/16 05:32 Seg Neutrophils # Man 2.3 K/mm3 (1.8-7.7) 07/21/16 05:32 Band Neutrophils # 0.0 K/mm3 07/21/16 05:32 Lymphocytes # (Manual) 1.8 K/mm3 (1.2-5.4) 07/21/16 05:32 Abs React Lymphs (Man) 0.0 K/mm3 07/21/16 05:32 Monocytes # (Manual) 0.6 K/mm3 (0.0-0.8) 07/21/16 05:32 Eosinophils # (Manual) 1.6 K/mm3 (0.0-0.4) H 07/21/16 05:32 Basophils # (Manual) 0.1 K/mm3 (0.0-0.1) 07/21/16 05:32 Metamyelocytes # 0.0 K/mm3 07/21/16 05:32 Myelocytes # 0.0 K/mm3 07/21/16 05:32 Promyelocytes # 0.0 K/mm3 07/21/16 05:32 Blast Cells # 0.0 K/mm3 07/21/16 05:32 WBC Morphology Not Reportable 07/21/16 05:32 Hypersegmented Neuts Not Reportable 07/21/16 05:32 Hyposegmented Neuts Not Reportable 07/21/16 05:32 Hypogranular Neuts Not Reportable 07/21/16 05:32 Smudge Cells Not Reportable 07/21/16 05:32 Toxic Granulation Not Reportable 07/21/16 05:32 Toxic Vacuolation Not Reportable 07/21/16 05:32 Dohle Bodies Not Reportable 07/21/16 05:32 Pelger-Huet Anomaly Not Reportable 07/21/16 05:32 Nohemy Rods Not Reportable 07/21/16 05:32 Platelet Estimate Consistent w auto 07/21/16 05:32 Clumped Platelets Not Reportable 07/21/16 05:32 Plt Clumps, EDTA Not Reportable 07/21/16 05:32 Large Platelets Not Reportable 07/21/16 05:32 Giant Platelets Not Reportable 07/21/16 05:32 Platelet Satelliting Not Reportable 07/21/16 05:32 Plt Morphology Comment Not Reportable 07/21/16 05:32 RBC Morphology Not Reportable 07/21/16 05:32 Dimorphic RBCs Not Reportable 07/21/16 05:32 Polychromasia Not Reportable 07/21/16 05:32 Hypochromasia Not Reportable 07/21/16 05:32 Poikilocytosis Not Reportable 07/21/16 05:32 Anisocytosis 1+ 07/21/16 05:32 Microcytosis Not Reportable 07/21/16 05:32 Macrocytosis Rare 07/21/16 05:32 Spherocytes Not Reportable 07/21/16 05:32 Pappenheimer Bodies Not Reportable 07/21/16 05:32 Sickle Cells Not Reportable 07/21/16 05:32 Target Cells Not Reportable 07/21/16 05:32 Tear Drop Cells Not Reportable 07/21/16 05:32 Ovalocytes Not Reportable 07/21/16 05:32 Helmet Cells Not Reportable 07/21/16 05:32 [place] Bodies Not Reportable 07/21/16 05:32 [place] Rings Not Reportable 07/21/16 05:32 [place] Cells Not Reportable 07/21/16 05:32 Bite Cells Not Reportable 07/21/16 05:32 Crenated Cell Not Reportable 07/21/16 05:32 Elliptocytes Not Reportable 07/21/16 05:32 Acanthocytes (Spur) Not Reportable 07/21/16 05:32 Rouleaux Not Reportable 07/21/16 05:32 Hemoglobin C Crystals Not Reportable 07/21/16 05:32 Schistocytes Not Reportable 07/21/16 05:32 Malaria parasites Not Reportable 07/21/16 05:32 Ghassan Bodies Not Reportable 07/21/16 05:32 Hem Pathologist Commnt No 07/21/16 05:32 PT 13.2 Sec. (12.2-14.9) 07/20/16 13:06 INR 1.01 (0.87-1.13) 07/20/16 13:06 APTT 30.8 Sec. (24.2-36.6) 07/20/16 13:06 Thrombin Time 17.3 Sec. (15.1-19.6) 07/20/16 13:06 Sodium 141 mmol/L (137-145) 07/21/16 05:32 Potassium 3.5 mmol/L (3.6-5.0) L 07/21/16 05:32 Chloride 103.7 mmol/L (98-107) 07/21/16 05:32 Carbon Dioxide 24 mmol/L (22-30) 07/21/16 05:32 Anion Gap 17 mmol/L 07/21/16 05:32 BUN 18 mg/dL (9-20) 07/21/16 05:32 Creatinine 1.2 mg/dL (0.8-1.5) 07/21/16 05:32 Estimated GFR > 60 ml/min 07/21/16 05:32 BUN/Creatinine Ratio 15.00 % 07/21/16 05:32 Glucose 94 mg/dL (75-100) 07/21/16 05:32 POC Glucose 83 (70-105) 07/20/16 13:03 Calcium 8.5 mg/dL (8.4-10.2) 07/21/16 05:32 Total Bilirubin 0.3 mg/dL (0.1-1.2) 07/21/16 05:32 AST 11 units/L (5-40) 07/21/16 05:32 ALT 8 units/L (7-56) 07/21/16 05:32 Alkaline Phosphatase 68 units/L (35-129) 07/21/16 05:32 Troponin T < 0.010 ng/mL (0.00-0.029) 07/20/16 13:06 Total Protein 6.7 g/dL (6.3-8.2) 07/21/16 05:32 Albumin 3.7 g/dL (3.9-5) L 07/21/16 05:32 Albumin/Globulin Ratio 1.2 % 07/21/16 05:32 Triglycerides 43 mg/dL (2-149) 07/22/16 05:26 Cholesterol 61 mg/dL (50-199) 07/22/16 05:26 LDL Cholesterol Direct 17 mg/dL (50-130) L 07/22/16 05:26 HDL Cholesterol 36 mg/dL (40-59) L 07/22/16 05:26 Cholesterol/HDL Ratio 1.69 % 07/22/16 05:26
[2016-07-22] MEDS: LOVENOX SUB-Q SCH (21:56)
[2016-07-22] MEDS: AMBIEN PO PRN (21:56)
[2016-07-23] MEDS ORDERED: APRESOLINE IV PRN (05:07)
[2016-07-23] MEDS: PERCOCET 5/325 PO PRN ×2 (05:42→12:26)
[2016-07-23] MEDS: COZAAR PO SCH (10:21)
[2016-07-23] MEDS: COREG PO SCH (10:21)
[2016-07-23] MEDS: BABY ASPIRIN PO SCH (10:21)
[2016-07-23] MEDS ORDERED: NACL ONE (13:51)
[2016-07-23 15:25] VITALS: BP 160/96
--- NOTE | 2016-07-23 15:45 | Cat Scan Report ---
CTA of the neck and CTA of head: History: CVA. Findings: The region of the innominate artery and the left common carotid and left subclavian artery is from the aorta. The right common carotid and the right subclavian origin is from the innominate. Along the origin and course of the right and left common carotid and the internal carotids and vertebrals there is no evidence of stenoses, plaque formation or occlusion noted. At the bulb the right than the left internal carotid the common carotid appears normal. The vessels of [place] appears unremarkable. No evidence of stenosis occlusion or aneurysm. Bilaterally vertebral are codominant with normal basilar artery. Impression: No evidence of plaque formation, stenoses, occlusion or aneurysm at vessels of the neck and intracranial vessels.
--- NOTE | 2016-07-23 15:45 | Cat Scan Report ---
CTA of the neck and CTA of head: History: CVA. Findings: The region of the innominate artery and the left common carotid and left subclavian artery is from the aorta. The right common carotid and the right subclavian origin is from the innominate. Along the origin and course of the right and left common carotid and the internal carotids and vertebrals there is no evidence of stenoses, plaque formation or occlusion noted. At the bulb the right than the left internal carotid the common carotid appears normal. The vessels of [place] appears unremarkable. No evidence of stenosis occlusion or aneurysm. Bilaterally vertebral are codominant with normal basilar artery. Impression: No evidence of plaque formation, stenoses, occlusion or aneurysm at vessels of the neck and intracranial vessels.
--- NOTE | 2016-07-23 16:38 | Discharge Summary ---
Providers - Providers Date of Admission: 07/20/16 20:15 Date of discharge: 07/23/16 Attending physician: SANDEE MONTELONGO 07/21/16 06:40 Consult to Physician [CONS] Routine Consulting Provider: SARAH PETERSON Reason For Exam: TIA Place consult to:: Dunia Rand Notified:: yes Phone number called:: [phone] Was contact made?: Yes If yes, spoke with:: message left as instructed Time called:: 07:49 Primary care physician: DIGITAL PRESS OPERATOR Hospitalization Condition: Stable Hospital course: HPI: This is a 50 YO Male with a history of previous CVA and hypertension presented with a hypertensive emergency BP 174/120, left temporal headache and left sided weakness. Patient stated that he stopped his BP meds when he loss weight. He was admitted to the hospital for stroke workup. Discharge Diagnosis and management by problem: Hypertensive urgency - due to noncompliance (lost weight and stopped taking his antihypertensives); - received hydralazine and labetalol IV initially, - now on by mouth Coreg and losartan; SBP in 140s; - Patient will continue to take current meds TIA - likely secondary to hypertensive urgency, - but CT head revealed a possible old stroke at left temporal lobe; - evaluated by neurologist and recommended additional workup (brain MRI, carotid Doppler); - 2d echo showed normal EF, MRI could not obtain because MRI machine was down - CTA head and neck was obtained per neurology and that was unremarkable - cont on antiplatelet and statin therapy Headache - likely secondary to hypertensive urgency; resolved Umbilical hernia - has to follow-up in outpatient with his surgeon Disposition: DISCHARGED TO HOME OR SELFCARE Time spent for discharge: 35 minutes Core Measure Documentation - Palliative Care Palliative Care/ Comfort Measures: Not Applicable - Core Measures Any of the following diagnoses?: stroke - Stroke Discharge Requirements Statin for LDL = or >70 mg/dl on DC: Yes Anticoag for atrial fib/atrial flutter: Not Applicable Antithrombotic for ischemic stroke: Yes Exam - Physical Exam Narrative exam: GENERAL: well-developed and well-nourished AAM lying on bed appeared to be in no discomfort. HEENT: Normocephalic. Atraumatic. No conjunctival congestion or icterus. Patient has moist mucous membranes. NECK: Supple. Trachea midline. CHEST/LUNGS: Clear to auscultated bilaterally, breathing nonlabored. No wheezes crackles or rhonchi. HEART/CARDIOVASCULAR: Regular in rate and rhythm. S1 and S2 positive. ABDOMEN: Abdomen is soft, nontender. Patient has normal bowel sounds. has reducible umbilical hernia SKIN: There is no rash. Warm and dry. NEURO: No focal motor deficit. Follows command. MUSCULOSKELETAL: No joint effusion or tenderness. EXTRIMITY: No edema, no cyanosis or clubbing. PSYCH: Cooperative. - Constitutional Vitals: Temp Pulse Resp BP Pulse Ox 98.5 F 55 L 20 150/86 100 07/23/16 15:24 07/23/16 15:24 07/23/16 15:24 07/23/16 15:24 07/23/16 15:24 Plan Activity: advance as tolerated Weight Bearing Status: Weight Bear as Tolerated Diet: low cholesterol, low salt Follow up with: [facility] [Outside] - 07/25/16 10:00 am PRIMARY CAREMD [Primary Care Provider] - 3-5 Days Prescriptions: AtorvaSTATin [Lipitor] 10 mg PO QHS #30 tablet Aspirin [Aspirin BABY CHEW TAB] 81 mg PO QDAY #30 tab.chew Carvedilol [Coreg] 12.5 mg PO BID #60 tablet Losartan [Cozaar] 100 mg PO QDAY #30 tablet
== END 2016-07-23 17:50 | disposition home or self-care (01) | DRG 305 ==
LOC: ED 12:39 → 4A 20:15
PROVIDERS: ADMIT Internal Medicine; ATTEND Internal Medicine
DX: I16.0 Hypertensive urgency (principal); I16.1 Hypertensive emergency; G45.9 Transient cerebral ischemic attack, unspecified; K42.9 Umbilical hernia without obstruction or gangrene; I10 Essential (primary) hypertension; R63.4 Abnormal weight loss; Z91.14 Patient's other noncompliance with medication regimen; Z82.49 Family history of ischemic heart disease and other diseases of the circulatory system; Z68.26 Body mass index [BMI] 26.0-26.9, adult; Z86.73 Personal history of transient ischemic attack (TIA), and cerebral infarction without residual deficits
CPT/HCPCS: 36415; 70450; 70496; 70498; 71010; 80048; 80053; 80061; 82962; 84484; 85007; 85025; 85610; 85670; 85730; 90686; 90732; 93005; 93010; 93306; 96372; 96374; A9270-GY; J0360; J1650; Q9967

== ENCOUNTER 2020-10-10 06:52 | Emergency (ER) | payer SELFPAY ==
--- NOTE | 2020-10-10 07:30 | Event Note ---
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 Further treatment and workup at subsequent clinical providers discretion. Patient/guardian urged not to elope from the ED as their condition may be serious if not clinically assessed and managed. Initial orders include: EKG LABS CT CHEST XRAY
--- NOTE | 2020-10-10 08:02 | XRay Report ---
CHEST 2 VIEWS INDICATION: Syncope. COMPARISON: 07/20/2016 FINDINGS: Support devices: None. Heart: Within normal limits. Lungs/pleura: No acute air space or interstitial disease. No pneumothorax. Additional findings: None. IMPRESSION: No acute findings. Normal chest x-ray. Signer Name: Augustus Cardenas Jr, MD Signed: 10/10/2020 7:58 AM Workstation Name: [id number]
[2020-10-10 08:10] LABS: Basophils # (Auto) 0.1 K/mm3 (0.0-0.1); Basophils % (Auto) 0.9 % (0.0-1.8); Eosinophils # (Auto) 0.5 K/mm3 (0.0-0.4); Eosinophils % (Auto) 8.6 % (0.0-4.3); Hematocrit 45.4 % (35.5-45.6); Hemoglobin 15.1 gm/dl (11.8-15.2); Lymphocytes # (Auto) 1.8 K/mm3 (1.2-5.4); Lymphocytes % (Auto) 29.2 % (13.4-35.0); Mean Corpuscular HGB Conc 33 % (32-34); Mean Corpuscular Volume 98 fl (84-94); Monocytes # (Auto) 0.5 K/mm3 (0.0-0.8); Monocytes % (Auto) 7.9 % (0.0-7.3); Platelet Count 268 K/mm3 (140-440); Red Blood Count 4.64 M/mm3 (3.65-5.03); Red Cell Distribution Width 14.1 % (13.2-15.2)
[2020-10-10 08:32] LABS: Alanine Aminotransferase 13 units/L (7-56); BUN/Creatinine Ratio 22; Blood Urea Nitrogen 26 mg/dL (9-20); Calcium 8.9 mg/dL (8.4-10.2); Creatine Kinase MB 3.4 ng/mL (0.0-4.0); Hemolysis Index 8
--- NOTE | 2020-10-10 09:40 | Cat Scan Report ---
CT HEAD WITHOUT CONTRAST INDICATION / CLINICAL INFORMATION: MAIN. TECHNIQUE: All CT scans at this location are performed using CT dose reduction for ALARA by means of automated e xposure control. COMPARISON: Unable to load prior CT head 07/20/2016 at the time of this dictation FINDINGS: HEMORRHAGE: None. EXTRA-AXIAL SPACES: Normal in size and morphology for the patient's age. VENTRICULAR SYSTEM: Normal in size and morphology for the patient's age. CEREBRAL PARENCHYMA: Mild periventricular and subcortical chronic microvascular changes. MIDLINE SHIFT OR HERNIATION: None. CEREBELLUM / BRAINSTEM: No significant abnormality. ORBITS: Normal as visualized. SOFT TISSUES of HEAD: No significant abnormality. CALVARIUM: No significant abnormality. PARANASAL SINUSES / MASTOID AIR CELLS: Normal as visualized. ADDITIONAL FINDINGS: None. IMPRESSION: 1. No acute intracranial abnormality. Signer Name: Josh Miller MD Signed: 10/10/2020 9:36 AM Workstation Name: [id number]
[2020-10-10 12:55] VITALS: BP 185/114
[2020-10-10] MEDS ORDERED: cloNIDine 0.2 MG TAB PO ONE (12:57)
--- NOTE | 2020-10-10 12:58 | Emergency Department Report ---
ED General Adult HPI - General Chief complaint: Syncope Stated complaint: HIGH BP PUI?: No Time Seen by Provider: 10/10/20 07:30 Source: patient Mode of arrival: Ambulatory Limitations: No Limitations - History of Present Illness Initial comments: Mr. Blackburn is a 55-year-old -[place] male that comes to the ER with dizziness when he got up rapidly from the bed this morning. His tells him that he passed out but denies passing out he is A AND O x4. He has no focal deficit. No evidence of trauma. He has recall of the events. He states that he is on blood pressure medicine. He denies being diabetic. He denies chest pain, shortness of breath fever or chills. He denies exposure or immunization to Covid. PT IS AMBULATORY AND IN NAD ON ARRIVAL TO ER. NO CP NO SOB NO HEADACHE NO WEAKNESS REPORTS HE DOES TAKE HIS BP MEDICATIONS. -: Sudden Improves with: none Worsens with: none Associated Symptoms: denies other symptoms Treatments Prior to Arrival: none - Related Data Allergies Allergy/AdvReac Type Severity Reaction Status Date / Time No Known Allergies Allergy Verified 10/10/20 07:18 ED Review of Systems ROS: Stated complaint: HIGH BP Other details as noted in HPI Comment: All other systems reviewed and negative ED Past Medical Hx - Past Medical History Hx Hypertension: Yes Additional medical history: HLD; HX CVA - Surgical History Past Surgical History?: No - Family History Family history: no significant - Social History Smoking Status: Never Smoker Substance Use Type: None ED Physical Exam - General Limitations: No Limitations General appearance: alert, in no apparent distress - Head Head exam: Present: atraumatic, normocephalic - Eye Eye exam: Present: normal appearance - ENT ENT exam: Present: mucous membranes moist - Neck Neck exam: Present: normal inspection - Respiratory Respiratory exam: Present: normal lung sounds bilaterally. Absent: respiratory distress - Cardiovascular Cardiovascular Exam: Present: regular rate, normal rhythm. Absent: systolic murmur, diastolic murmur, rubs, gallop - GI/Abdominal GI/Abdominal exam: Present: soft, normal bowel sounds - Rectal Rectal exam: Present: deferred - Extremities Exam Extremities exam: Present: normal inspection - Back Exam Back exam: Present: normal inspection - Neurological Exam Neurological exam: Present: alert, oriented X3 - Psychiatric Psychiatric exam: Present: normal affect, normal mood - Skin Skin exam: Present: warm, dry, intact, normal color. Absent: rash ED Course Vital Signs 10/10/20 10/10/20 10/10/20 07:23 12:54 13:00 Temperature 98.3 F Pulse Rate 70 61 61 Respiratory 18 18 Rate Blood Pressure 170/104 185/114 Blood Pressure 185/114 [Right] O2 Sat by Pulse 97 96 Oximetry - Reevaluation(s) Reevaluation #1: 10/10/20 13:38 EMR review ECHO 2017 N BIVENTRICULAR FUNCTION pt only on norvasc at home for bp Reevaluation #2: 10/10/20 13:45 VALIDATED WITH REGISTRATION [facility] [employer] IS INVALID Reevaluation #3: 10/10/20 15:23 RN went in to nc pt and he stated he has been having diarrhea for a week 10/10/20 15:33 Orthostatic vital signs are noted. He is not orthostatic. There is no significant fall in blood pressure or heart rate. ED Medical Decision Making - Lab Data Result diagrams: 10/10/20 07:49 10/10/20 07:49 - EKG Data EKG shows normal: sinus rhythm Rate: normal - EKG Data When compared to previous EKG there are: no significant change Interpretation: no acute changes - Radiology Data Radiology results: report reviewed, image reviewed [facility] - Medical Decision Making Labs 10/10/20 10/10/20 10/10/20 07:49 07:49 Unknown WBC 6.1 RBC 4.64 Hgb 15.1 Hct 45.4 MCV 98 H MCH 32 MCHC 33 RDW 14.1 Plt Count 268 Lymph % (Auto) 29.2 [place] % (Auto) 7.9 H Eos % (Auto) 8.6 H Baso % (Auto) 0.9 Lymph # (Auto) 1.8 [place] # (Auto) 0.5 Eos # (Auto) 0.5 H Baso # (Auto) 0.1 Seg Neutrophils % 53.4 Seg Neutrophils # 3.3 Sodium 139 Potassium 4.0 Chloride 104.4 Carbon Dioxide 26 Anion Gap 13 BUN 26 H Creatinine 1.2 Estimated GFR > 60 BUN/Creatinine Ratio 22 Glucose 98 Calcium 8.9 Magnesium 2.20 Total Bilirubin 0.30 AST 16 ALT 13 Alkaline Phosphatase 66 Total Creatine Kinase 160 CK-MB (CK-2) 3.4 CK-MB (CK-2) Rel Index 2.1 Troponin T < 0.010 Total Protein 7.2 Albumin 4.0 Albumin/Globulin Ratio 1.3 Urine Color Yellow Urine Turbidity Clear Urine pH 6.0 Ur Specific [place] 1.021 Urine Protein <15 mg/dl Urine Glucose (UA) Neg Urine Ketones Neg Urine Blood Sm Urine Nitrite Neg Urine Bilirubin Neg Urine Urobilinogen 2.0 Ur Leukocyte Esterase Neg Urine WBC (Auto) < 1.0 Urine RBC (Auto) 3.0 Urine Mucus 1+ XR CHEST NAP HEAD CT NAP NO FOCAL NEURO DEF LABS NOTED UA noted. REPEAT 12 LEAD NO CHANGE REPEAT TROP NEGATIVE. CK neg MEDICATED WITH CLONIDINE FOR BP Patient has slight decrease in his blood pressure. I do not want to decrease his blood pressure too rapidly. He is on Norvasc. On reexam patient is denying any chest pain or shortness of breath. He states that he was just sleepy because he did not sleep well last night. Patient denies alcohol or drug use. He denies marijuana or cigarettes. Patient lives with his . Pt ambulatory and taking PO without difficulty I've educated pt on the need to take his bp meds daily as instructed. I've also told him he needs to see a pcp for his bp med may not be the best for him. At one time he was on coreg but he states it was changed. He is no longer with [facility]. ON DC PT BP IS TRENDING DOWN-- I DO NOT WANT TO DROP TO RAPIDLY HE IS NEURO INTACT, AMBULATORY, AND TAKING PO. DC HOME WITH DC PLAN OF CARE INCLUDING PCP FOLLOW UP. PT VERBALIZES UNDERSTANDING OF PLAN OF CARE. Vital Signs 10/10/20 10/10/20 10/10/20 07:23 12:54 13:00 Temperature 98.3 F Pulse Rate 70 61 61 Respiratory 18 18 Rate Blood Pressure 170/104 185/114 Blood Pressure 185/114 [Right] O2 Sat by Pulse 97 96 Oximetry - Differential Diagnosis RO CVA/ARRHYTHMIA/ACS Critical care attestation.: If time is entered above; I have spent that time in minutes in the direct care of this critically ill patient, excluding procedure time. ED Disposition Clinical Impression: Uncontrolled hypertension Disposition: DC-01 TO HOME OR SELFCARE Is pt being admited?: No Does the pt Need Aspirin: No Condition: Stable Instructions: Hypertension, Adult, [id number], Hypertension (ED) Additional Instructions: continue your home bp meds avoid alcohol/cig./drugs drink a lot of water follow up this week with pcp to be sure you feel better referral below Referrals: PRIMARY CARE, [Primary Care Provider] - 3-5 Days LULA MATHUR MD [Staff Physician] - 3-5 Days RUBEN RENEE MD [Staff Physician] - 3-5 Days Forms: Work/School Release Form(ED) Time of Disposition: 13:39
[2020-10-10 13:10] LABS: Bilirubin,Urine NEG (Negative); Blood,Urine SM (Negative); Color,Urine Yellow (Yellow); Mucus,Urine 1+ /HPF; Protein,Urine <15 mg/dL mg/dL (Negative); WBC,Urine < 1.0 /HPF (0.0-6.0)
--- NOTE | 2020-10-11 11:39 | Electrocardiograph Report ---
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
--- NOTE | 2020-10-12 17:05 | Electrocardiograph Report ---
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
== END 2020-10-10 16:50 | disposition home or self-care (01) ==
LOC: ED 06:52
DX: I10 Essential (primary) hypertension (principal)
CPT/HCPCS: 36415; 70450; 71046; 80053; 81001; 82550; 82553; 83735; 84484; 85025; 93005

== ENCOUNTER 2022-02-16 16:18 | Emergency (ER) | payer SELFPAY ==
[2022-02-16] MEDS ORDERED: cloNIDine 0.2 MG TAB PO ONE (17:54)
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
[2022-02-16 20:55] VITALS: BP 154/92
== END 2022-02-16 21:00 | disposition home or self-care (01) ==
LOC: ED 16:18
DX: I10 Essential (primary) hypertension (principal)
CPT/HCPCS: 99283